=== PATIENT | female | born 1995 ===

== ENCOUNTER 2017-01-10 21:42 | Emergency (ER) | payer OTHER, BC ==
[2017-01-10] MEDS ORDERED: Ketorolac 60 MG/2 ML SDV IM ONE (21:55)
--- NOTE | 2017-01-10 21:55 | EDM.PDOC ---
ED HPI GENERAL MEDICAL PROBLEM - General Stated Complaint: LT KNEE POPPED Time Seen by Provider: 01/10/17 21:43 Source of Information: Reports: Patient History Limitations: Reports: No Limitations - History of Present Illness INITIAL COMMENTS - FREE TEXT/NARRATIVE: HISTORY AND PHYSICAL: History of present illness: Patient is a 21-year-old female who presents to the emergency room today with complaints of left knee pain. She states she was playing soccer and went to outstretch and kick a ball out of the way and felt her knee "pop out and pop back in ". She states that she had immediate pain and was unable to bear weight on it. Denies any previous injuries or surgeries to the left knee but has had surgery to the right knee. Denies any numbness or tingling to the affected extremity Patient was assisted into the room by her father as weightbearing causes pain. Ice has been applied. Review of systems: As per history of present illness and below otherwise all systems reviewed and negative. Past medical history: As per history of present illness and as reviewed below otherwise noncontributory. Surgical history: As per history of present illness and as reviewed below otherwise noncontributory. Social history: No reported history of drug or alcohol abuse. Family history: As per history of present illness and as reviewed below otherwise noncontributory. Physical exam: Gen.: Nontoxic appearing 21-year-old female. Able to speak in full sentences without shortness of breath. Alert and oriented. HEENT: Atraumatic, normocephalic, pupils reactive, negative for conjunctival pallor or scleral icterus, mucous membranes moist, throat clear, neck supple, nontender, trachea midline. Lungs: Clear to auscultation, breath sounds equal bilaterally, chest nontender. Heart: S1S2, regular, negative for clicks, rubs, or JVD. Abdomen: Soft, nondistended, nontender. Negative for masses or hepatosplenomegaly. Negative for costovertebral tenderness. Pelvis: Stable nontender. Genitourinary: Deferred. Rectal: Deferred. Extremities: Pain with weightbearing of the left lower extremity. No knee instability noted upon evaluation, negative drawer test. Skin is intact, warm, dry. Mild tenderness with palpation along the medial and lateral patella. +CMS. Strong pedal pulses. negative for cords or calf pain. Neurovascular unremarkable. Neuro: Awake, alert, oriented. Cranial nerves II through XII unremarkable. Cerebellum unremarkable. Motor and sensory unremarkable throughout. Exam nonfocal. Diagnostics: X-ray Therapeutics: Toradol IM Knee immobilizer Crutches Impression: Knee injury Plan: 1. Please use the crutches and knee immobilizer as directed. 2. May use Tylenol and/or ibuprofen as needed for pain management. Rest, ice, elevate the extremity as able. 3. Follow-up with orthopedics in the next 1-2 days. Return to the ED as needed and as discussed. Definitive disposition and diagnosis as appropriate pending reevaluation and review of above. Onset: Today Review of Systems - Review of Systems Review Of Systems: ROS reveals no pertinent complaints other than HPI. ED EXAM, GENERAL - Physical Exam Exam: See Below (See dictation) Departure - Departure Time of Disposition: 21:57 Disposition: Home, Self-Care 01 Clinical Impression: Knee injury Qualifiers: Encounter type: initial encounter Laterality: left Qualified Code(s): S89.92XA - Unspecified injury of left lower leg, initial encounter - Discharge Information Additional Instructions: My general discharge The following information is given to patients seen in the emergency department who are being discharged to home. This information is to outline your options for follow-up care. We provide all patients seen in our emergency department with a follow-up referral. The need for follow-up, as well as the timing and circumstances, are variable depending upon the specifics of your emergency department visit. If you don't have a primary care physician on staff, we will provide you with a referral. We always advise you to contact your personal physician following an emergency department visit to inform them of the circumstance of the visit and for follow-up with them and/or the need for any referrals to a consulting specialist. The emergency department will also refer you to a specialist when appropriate. This referral assures that you have the opportunity for follow-up care with a specialist. All of these measure are taken in an effort to provide you with optimal care, which includes your follow-up. Under all circumstances we always encourage you to contact your private physician who remains a resource for coordinating your care. When calling for follow-up care, please make the office aware that this follow-up is from your recent emergency room visit. If for any reason you are refused follow-up, please contact the [facility] Department at and asked to speak to the emergency department charge nurse. LUIS ANTONIO [facility] [address], [address] [place] [address] 1. Please use the crutches and knee immobilizer as directed. 2. May use Tylenol and/or ibuprofen as needed for pain management. Rest, ice, elevate the extremity as able. 3. Follow-up with orthopedics in the next 1-2 days as we discussed you may need an MRI for further evaluation of ligamentous and tendon involvement. Return to the ED as needed and as discussed.
--- NOTE | 2017-01-11 10:56 | CR ---
EXAM DATE: 01/10/17 PATIENT'S AGE: 21 Patient: BRO ARROYO Facility: [place], [place] Site . Site : 1995 Study: XRay Knee Left [id number] 10:23:40 PM Ordering Physician: Doctor Moraes Final Report: INDICATION: Knee pain TECHNIQUE: Knee radiographs 3 views COMPARISON: None FINDINGS: Left knee alignment normal. No joint effusion in the suprapatellar recess. Patella alignment normal. Distal quadriceps tendon and patellar tendon are unremarkable. Indeterminate bone density adjacent to the left lateral femoral condyle, seen on sunrise and AP projections. Tibial plateau intact. IMPRESSION: 1. No acute fracture or left knee joint effusion. Indeterminate bone density adjacent to the lateral facet on sunrise view and lateral femoral condyle on the AP view. This may represent a small intra-articular body. Dictated by Jonathan Stanton MD @ 01/10/2017 10:39:58 PM Dictated by: Jonathan Stanton MD @ 01/10/2017 22:40:03 (Electronic Signature) Report Signed by Proxy. STEPHANY
== END 2017-01-10 23:12 | disposition home or self-care (01) ==
LOC: MW.ED 21:42
DX: S89.92XA Unspecified injury of left lower leg, initial encounter (principal); X50.9XXA Other and unspecified overexertion or strenuous movements or postures, initial encounter; Y93.66 Activity, soccer
CPT/HCPCS: 73562; 96372; 99283; J1885; 99284